=== PATIENT | female | born 1960 | race Caucasian/White ===

== ENCOUNTER 2018-03-30 12:16 | Inpatient (IN) | payer MEDICAID, OTHER ==
[2018-03-30] MEDS: SOD CHLORIDE 0.9% 1,000 ML IV (13:00)
[2018-03-30] MEDS: ONDANSETRON 4 MG INJ IV (13:00)
[2018-03-30] MEDS: morphine 4 MG/ML VIAL IV (13:01)
[2018-03-30 13:22] LABS: ADD MAN DIFF? NO
[2018-03-30 13:25] LABS: BASOPHILS % 0.4 % (0.0-2.0); EOSINOPHILS % 0.1 % (0.0-7.0); HEMATOCRIT 40.9 % (37.0-47.0); HEMOGLOBIN 13.1 g/dl (12.0-16.0); LYMPHOCYTES # 0.7 10^3/ul (0.8-2.9); LYMPHOCYTES % 8.8 % (15.0-51.0); MEAN CORPUSCULAR HEMOGLOBIN 29.4 pg (29.0-33.0); MEAN CORPUSCULAR VOLUME 91.7 fl (82.0-101.0); MEAN PLATELET VOLUME 9.6 fl (7.4-10.4); MONOCYTE # 0.1 10^3/ul (0.3-0.9); MONOCYTES % 0.6 % (0.0-11.0); NEUTROPHIL # 7.2 10^3/ul (1.6-7.5); NEUTROPHILS % 89.8 % (39.0-77.0); PLATELET COUNT 262 10^3/UL (140-415); RED BLOOD COUNT 4.46 10^6/ul (4.20-5.40); RED CELL DISTRIBUTION WIDTH 13.1 % (11.5-14.5)
[2018-03-30 13:27] LABS: ADD UMIC NO; POSITIVE DIFF @See below; UR ASCORBIC ACID NEGATIVE (NEGATIVE); UR BILIRUBIN (Dip) NEGATIVE (NEGATIVE); UR BLOOD (Dip) NEGATIVE (NEGATIVE); UR CLARITY CLEAR (CLEAR); UR COLOR YELLOW (YELLOW); UR GLUCOSE (Dip) 1+ mg/dL (NEGATIVE); UR KETONES (Dip) TRACE mg/dL (NEGATIVE); UR LEUKOCYTE ESTERASE (Dip) NEGATIVE Leu/ul (NEGATIVE); UR NITRITE (Dip) NEGATIVE (NEGATIVE); UR SPECIFIC GRAVITY (Dip) 1.016 (1.003-1.030); UR TOTAL PROTEIN (Dip) NEGATIVE (NEGATIVE); UR UROBILINOGEN (Dip) NEGATIVE (NEGATIVE)
[2018-03-30 13:43] LABS: ALANINE AMINOTRANSFERASE 25 IU/L (13-69); ALBUMIN 4.2 g/dl (3.3-4.9); ALBUMIN/GLOBULIN RATIO 1.27; ALKALINE PHOSPHATASE 165 IU/L (42-121); ANION GAP 15 (8-16); ASPARTATE AMINO TRANSFERASE 20 IU/L (15-46); BILIRUBIN,INDIRECT 0.9 mg/dl (0-1.1); BILIRUBIN,TOTAL 0.9 mg/dl (0.2-1.3); BLOOD UREA NITROGEN 15 mg/dl (7-20); CALCIUM 9.4 mg/dl (8.4-10.2); CARBON DIOXIDE 27 mmol/L (21-31); CHLORIDE 100 mmol/L (97-110); GLUCOSE 207 mg/dl (70-220); LIPASE 25 U/L (23-300); POTASSIUM 3.9 mmol/L (3.5-5.1); SODIUM 138 mmol/L (135-144); TOTAL PROTEIN 7.5 g/dl (6.1-8.1)
[2018-03-30 13:59] LABS: BAND NEUTROPHILS #M 0.7 10^3/ul (0.0-0.6); BAND NEUTROPHILS % (M) 9 % (0-4); BASOPHIL #M 0.1 10^3/ul (0.0-0.0); BASOPHILS % (M) 2 % (0-2); LYMPHOCYTES #M 3.1 10^3/ul (0.8-2.9); LYMPHOCYTES % (M) 39 % (15-51); PLATELET ESTIMATE NORMAL; POLYCHROMASIA 1+ (0-0); SEG NEUT #M 4.1 10^3/ul (1.6-7.5); SEGMENTED NEUTROPHILS (M) % 50 % (39-77); SMUDGE%M 2 % (0-0)
[2018-03-30] MEDS: SOD CHLORIDE 0.9% 100 ML (14:29)
[2018-03-30] MEDS: IOHEXOL 300MG/ML 150 ML BTL (14:29)
[2018-03-30] MEDS: PIPER-TAZO 3.375 GM IV (PMX) 100 ML IVPB ×2 (15:22→22:33)
[2018-03-30] MEDS: SODIUM CHLORIDE 0.9% 1L BAG IV* (15:23)
[2018-03-30] MEDS: VANCOMYCIN 1 GM (PMX) 250 ML IVPB (15:54)
[2018-03-30] MEDS: HYDROmorphONE 1 MG/ML SYG IV (15:55)
[2018-03-30 16:08] LABS: LACTIC ACID 1.6 mmol/L (0.5-2.0)
[2018-03-30 16:29] LABS: TROPONIN-I < 0.012 ng/ml (0.000-0.120)
[2018-03-30] MEDS: ONDANSETRON (ODT) 4 MG TAB ODT (17:15)
[2018-03-30 17:56] LABS: LACTIC ACID 1.2 mmol/L (0.5-2.0)
[2018-03-30] MEDS ORDERED: GLUCOSE GEL 15 GRAM TUBE PO ×2 (19:00)
[2018-03-30] MEDS ORDERED: ONDANSETRON 4 MG INJ IV ×2 (19:00)
[2018-03-30] MEDS ORDERED: ACETAMINOPHEN 325 MG TAB PO ×2 (19:00)
[2018-03-30] MEDS ORDERED: GLUCOSE GEL 15 GRAM TUBE BUCCAL (19:00)
[2018-03-30] MEDS ORDERED: GLUCAGON 1 MG INJ IM (19:00)
[2018-03-30] MEDS ORDERED: DEXTROSE 50% 50 ML SYRINGE IV ×2 (19:00)
[2018-03-30 19:05] LABS: HEMOGLOBIN A1C 8.6 % (0-5.9)
[2018-03-30] MEDS: SOD CHLORIDE 0.45% 1,000 ML IV (19:13)
[2018-03-30] MEDS ORDERED: VANCOMYCIN IV PER PHARMACY XX (21:00)
[2018-03-30 21:11] LABS: LACTIC ACID 1.3 mmol/L (0.5-2.0)
[2018-03-30] MEDS: morphine 2 MG INJ IV (22:02)
[2018-03-30] MEDS: INSULIN ASPART [NOVOLOG] 3 ML PEN SC (22:37)
[2018-03-30] MEDS: VANCOMYCIN 750 MG in SOD CHLORIDE 0.9% 150 ML IVPB (23:25)
[2018-03-31] MEDS: ACCU-CHEK XX (02:00)
[2018-03-31] MEDS: morphine 2 MG INJ IV (02:06)
[2018-03-31] MEDS: KETOROLAC 30 MG INJ IV ×4 (04:06→22:46)
[2018-03-31] MEDS: PIPER-TAZO 3.375 GM IV (PMX) 100 ML IVPB (05:24)
[2018-03-31 06:27] LABS: ADD MAN DIFF? NO
[2018-03-31 06:30] LABS: BASOPHILS % 0.4 % (0.0-2.0); EOSINOPHILS % 0.2 % (0.0-7.0); HEMATOCRIT 31.6 % (37.0-47.0); HEMOGLOBIN 10.2 g/dl (12.0-16.0); LYMPHOCYTES # 1.5 10^3/ul (0.8-2.9); MEAN CORPUSCULAR HEMOGLOBIN 29.7 pg (29.0-33.0); MEAN CORPUSCULAR HGB CONC 32.3 g/dl (32.0-37.0); MEAN CORPUSCULAR VOLUME 92.1 fl (82.0-101.0); MEAN PLATELET VOLUME 10.1 fl (7.4-10.4); MONOCYTE # 0.6 10^3/ul (0.3-0.9); MONOCYTES % 6.3 % (0.0-11.0); NEUTROPHILS % 76.8 % (39.0-77.0); PLATELET COUNT 232 10^3/UL (140-415); RED BLOOD COUNT 3.43 10^6/ul (4.20-5.40); RED CELL DISTRIBUTION WIDTH 13.2 % (11.5-14.5)
[2018-03-31 06:30] LABS: WHITE BLOOD COUNT 9.1 10^3/ul (4.8-10.8)
[2018-03-31 07:08] LABS: ALANINE AMINOTRANSFERASE 23 IU/L (13-69); ALBUMIN 3.2 g/dl (3.3-4.9); ALBUMIN/GLOBULIN RATIO 1.14; ALKALINE PHOSPHATASE 111 IU/L (42-121); ANION GAP 7 (8-16); ASPARTATE AMINO TRANSFERASE 17 IU/L (15-46); BILIRUBIN,INDIRECT 0.4 mg/dl (0-1.1); BILIRUBIN,TOTAL 0.4 mg/dl (0.2-1.3); BLOOD UREA NITROGEN 8 mg/dl (7-20); CALCIUM 8.4 mg/dl (8.4-10.2); CARBON DIOXIDE 27 mmol/L (21-31); CHLORIDE 108 mmol/L (97-110); CREATININE 0.49 mg/dl (0.44-1.00); GLUCOSE 141 mg/dl (70-220); MAGNESIUM 2.1 mg/dl (1.7-2.5); PHOSPHORUS 2.7 mg/dl (2.5-4.9); POTASSIUM 3.8 mmol/L (3.5-5.1); SODIUM 138 mmol/L (135-144)
[2018-03-31] MEDS: INSULIN ASPART [NOVOLOG] 3 ML PEN SC ×6 (08:03→20:47)
[2018-03-31] MEDS ORDERED: HYDROCODONE/APAP (5/325) TAB PO (09:30)
[2018-03-31] MEDS: CIPROFLOXACIN 0.3% 2.5 ML OPH RIGHT EYE (10:03)
[2018-03-31 11:02] LABS: IRON 16 ug/dl (35-150)
[2018-03-31 11:02] LABS: LACTATE DEHYDROGENASE 401 IU/L (313-618)
[2018-03-31 11:11] LABS: % IRON SATURATION 6 % SAT (22-52); TOTAL IRON BINDING CAPACITY 283 ug/dl (241-421)
[2018-03-31] MEDS: VANCOMYCIN 750 MG in SOD CHLORIDE 0.9% 150 ML IVPB (11:23)
[2018-03-31] MEDS: MEROPENEM 1 GM/50ML(PMX) 50 ML IVPB ×2 (15:07→22:03)
[2018-03-31] MEDS: FERROUS SULFATE (EC) 325 MG TAB PO ×2 (15:07→20:47)
[2018-03-31] MEDS: INSULIN GLARGINE [LANtus] 3 ML PEN SC (20:51)
[2018-03-31 23:27] LABS: VANCOMYCIN,TROUGH 5.6 ug/ml (10.0-20.0)
[2018-04-01] MEDS: VANCOMYCIN 1 GM 250 ML IVPB ×3 (00:03→16:13)
[2018-04-01] MEDS: ACCU-CHEK XX ×2 (01:46)
[2018-04-01] MEDS: MEROPENEM 1 GM/50ML(PMX) 50 ML IVPB ×3 (05:42→21:26)
[2018-04-01] MEDS: KETOROLAC 30 MG INJ IV ×4 (05:51→22:45)
[2018-04-01 06:16] LABS: ADD MAN DIFF? NO
[2018-04-01 06:19] LABS: BASOPHILS % 0.6 % (0.0-2.0); EOSINOPHILS % 0.8 % (0.0-7.0); HEMATOCRIT 33.7 % (37.0-47.0); HEMOGLOBIN 10.8 g/dl (12.0-16.0); LYMPHOCYTES # 1.4 10^3/ul (0.8-2.9); LYMPHOCYTES % 27.5 % (15.0-51.0); MEAN CORPUSCULAR HEMOGLOBIN 29.7 pg (29.0-33.0); MEAN CORPUSCULAR VOLUME 92.6 fl (82.0-101.0); MEAN PLATELET VOLUME 9.9 fl (7.4-10.4); MONOCYTE # 0.5 10^3/ul (0.3-0.9); MONOCYTES % 9.7 % (0.0-11.0); NEUTROPHIL # 3.1 10^3/ul (1.6-7.5); NEUTROPHILS % 61.2 % (39.0-77.0); PLATELET COUNT 227 10^3/UL (140-415); RED BLOOD COUNT 3.64 10^6/ul (4.20-5.40); RED CELL DISTRIBUTION WIDTH 13.3 % (11.5-14.5)
[2018-04-01 06:19] LABS: WHITE BLOOD COUNT 5.1 10^3/ul (4.8-10.8)
[2018-04-01 07:13] LABS: ANION GAP 11 (8-16); BLOOD UREA NITROGEN 13 mg/dl (7-20); CALCIUM 8.7 mg/dl (8.4-10.2); CARBON DIOXIDE 28 mmol/L (21-31); CHLORIDE 107 mmol/L (97-110); CREATININE 0.48 mg/dl (0.44-1.00); GLUCOSE 149 mg/dl (70-220); MAGNESIUM 2.1 mg/dl (1.7-2.5); PHOSPHORUS 2.9 mg/dl (2.5-4.9); POTASSIUM 3.7 mmol/L (3.5-5.1); SODIUM 142 mmol/L (135-144)
[2018-04-01] MEDS: FERROUS SULFATE (EC) 325 MG TAB PO ×2 (08:02→21:26)
[2018-04-01] MEDS: INSULIN ASPART [NOVOLOG] 3 ML PEN SC ×6 (08:09→21:00)
[2018-04-01] MEDS: POLYETHYLENE GLYCOL 17 GM PACKET PO (16:13)
[2018-04-01 17:16] LABS: HAPTOGLOBIN 334 mg/dL (43-212)
[2018-04-01] MEDS: metFORMIN 500 MG TAB PO (17:17)
[2018-04-01] MEDS: REPAGLINIDE 1 MG TAB PO (17:18)
[2018-04-01] MEDS ORDERED: morphine LIQ (10 MG/5 ML) CUP PO (21:30)
[2018-04-02 00:04] LABS: VANCOMYCIN,TROUGH 11.7 ug/ml (10.0-20.0)
[2018-04-02] MEDS: VANCOMYCIN 1 GM 250 ML IVPB ×4 (00:39→23:45)
[2018-04-02] MEDS: ACCU-CHEK XX ×2 (02:00→23:54)
[2018-04-02 05:37] LABS: ADD MAN DIFF? NO
[2018-04-02 05:44] LABS: BASOPHILS % 0.8 % (0.0-2.0); EOSINOPHILS # 0.1 10^3/ul (0.0-0.5); EOSINOPHILS % 1.2 % (0.0-7.0); HEMATOCRIT 36.3 % (37.0-47.0); HEMOGLOBIN 11.7 g/dl (12.0-16.0); LYMPHOCYTES # 1.7 10^3/ul (0.8-2.9); MEAN CORPUSCULAR HEMOGLOBIN 29.4 pg (29.0-33.0); MEAN CORPUSCULAR HGB CONC 32.2 g/dl (32.0-37.0); MEAN CORPUSCULAR VOLUME 91.2 fl (82.0-101.0); MEAN PLATELET VOLUME 9.4 fl (7.4-10.4); MONOCYTE # 0.4 10^3/ul (0.3-0.9); MONOCYTES % 8.1 % (0.0-11.0); NEUTROPHIL # 2.6 10^3/ul (1.6-7.5); NEUTROPHILS % 53.5 % (39.0-77.0); PLATELET COUNT 271 10^3/UL (140-415); RED BLOOD COUNT 3.98 10^6/ul (4.20-5.40); RED CELL DISTRIBUTION WIDTH 13.2 % (11.5-14.5)
[2018-04-02 05:44] LABS: WHITE BLOOD COUNT 4.8 10^3/ul (4.8-10.8)
[2018-04-02] MEDS: MEROPENEM 1 GM/50ML(PMX) 50 ML IVPB ×3 (05:44→22:12)
[2018-04-02] MEDS: KETOROLAC 30 MG INJ IV ×3 (05:48→18:11)
[2018-04-02 06:05] LABS: ANION GAP 14 (8-16); BLOOD UREA NITROGEN 15 mg/dl (7-20); CALCIUM 9.2 mg/dl (8.4-10.2); CARBON DIOXIDE 30 mmol/L (21-31); CHLORIDE 103 mmol/L (97-110); CREATININE 0.49 mg/dl (0.44-1.00); GLUCOSE 175 mg/dl (70-220); MAGNESIUM 2.2 mg/dl (1.7-2.5); PHOSPHORUS 3.6 mg/dl (2.5-4.9); POTASSIUM 4.3 mmol/L (3.5-5.1); SODIUM 143 mmol/L (135-144)
[2018-04-02] MEDS: INSULIN ASPART [NOVOLOG] 3 ML PEN SC ×4 (08:03→21:00)
[2018-04-02] MEDS: FERROUS SULFATE (EC) 325 MG TAB PO ×2 (08:34→20:54)
[2018-04-02] MEDS: metFORMIN 500 MG TAB PO ×2 (08:34→17:37)
[2018-04-02] MEDS: REPAGLINIDE 1 MG TAB PO ×3 (08:34→17:37)
[2018-04-03] MEDS: KETOROLAC 30 MG INJ IV ×4 (00:02→20:52)
[2018-04-03] MEDS: MEROPENEM 1 GM/50ML(PMX) 50 ML IVPB ×3 (05:28→21:44)
[2018-04-03 06:05] LABS: ADD MAN DIFF? NO
[2018-04-03 06:23] LABS: WHITE BLOOD COUNT 4.8 10^3/ul (4.8-10.8)
[2018-04-03 06:23] LABS: BASOPHILS % 0.6 % (0.0-2.0); EOSINOPHILS # 0.1 10^3/ul (0.0-0.5); EOSINOPHILS % 1.5 % (0.0-7.0); HEMATOCRIT 37.4 % (37.0-47.0); HEMOGLOBIN 12.1 g/dl (12.0-16.0); LYMPHOCYTES # 1.9 10^3/ul (0.8-2.9); LYMPHOCYTES % 38.7 % (15.0-51.0); MEAN CORPUSCULAR HEMOGLOBIN 29.5 pg (29.0-33.0); MEAN CORPUSCULAR HGB CONC 32.4 g/dl (32.0-37.0); MEAN CORPUSCULAR VOLUME 91.2 fl (82.0-101.0); MEAN PLATELET VOLUME 9.5 fl (7.4-10.4); MONOCYTE # 0.4 10^3/ul (0.3-0.9); MONOCYTES % 7.9 % (0.0-11.0); NEUTROPHIL # 2.4 10^3/ul (1.6-7.5); NEUTROPHILS % 50.7 % (39.0-77.0); PLATELET COUNT 280 10^3/UL (140-415); RED CELL DISTRIBUTION WIDTH 13.2 % (11.5-14.5)
[2018-04-03 06:40] LABS: ANION GAP 15 (8-16); BLOOD UREA NITROGEN 17 mg/dl (7-20); CALCIUM 9.1 mg/dl (8.4-10.2); CARBON DIOXIDE 28 mmol/L (21-31); CHLORIDE 103 mmol/L (97-110); CREATININE 0.46 mg/dl (0.44-1.00); GLUCOSE 147 mg/dl (70-220); MAGNESIUM 2.2 mg/dl (1.7-2.5); PHOSPHORUS 3.7 mg/dl (2.5-4.9); POTASSIUM 4.1 mmol/L (3.5-5.1); SODIUM 142 mmol/L (135-144)
[2018-04-03] MEDS: VANCOMYCIN 1 GM 250 ML IVPB ×2 (08:12→16:29)
[2018-04-03] MEDS: metFORMIN 500 MG TAB PO ×2 (08:13→17:05)
[2018-04-03] MEDS: FERROUS SULFATE (EC) 325 MG TAB PO ×2 (08:13→20:45)
[2018-04-03] MEDS: glipiZIDE 5 MG TAB PO (08:13)
[2018-04-03] MEDS: INSULIN ASPART [NOVOLOG] 3 ML PEN SC ×4 (08:15→20:45)
[2018-04-03] MEDS: traMADol 50 MG TAB PO (12:41)
[2018-04-03] MEDS: LACTULOSE 30ML CUP PO (13:05)
[2018-04-03 23:20] LABS: VANCOMYCIN,TROUGH 17.7 ug/ml (10.0-20.0)
[2018-04-04] MEDS: ACCU-CHEK XX (02:00)
[2018-04-04] MEDS: KETOROLAC 30 MG INJ IV ×3 (05:26→22:25)
[2018-04-04] MEDS: MEROPENEM 1 GM/50ML(PMX) 50 ML IVPB (05:29)
[2018-04-04 06:00] LABS: ADD MAN DIFF? NO
[2018-04-04 06:09] LABS: BASOPHILS % 0.8 % (0.0-2.0); EOSINOPHILS # 0.1 10^3/ul (0.0-0.5); EOSINOPHILS % 2.5 % (0.0-7.0); HEMATOCRIT 35.6 % (37.0-47.0); HEMOGLOBIN 11.5 g/dl (12.0-16.0); LYMPHOCYTES # 1.8 10^3/ul (0.8-2.9); LYMPHOCYTES % 34.1 % (15.0-51.0); MEAN CORPUSCULAR HEMOGLOBIN 29.6 pg (29.0-33.0); MEAN CORPUSCULAR HGB CONC 32.3 g/dl (32.0-37.0); MEAN CORPUSCULAR VOLUME 91.5 fl (82.0-101.0); MEAN PLATELET VOLUME 9.4 fl (7.4-10.4); MONOCYTE # 0.4 10^3/ul (0.3-0.9); MONOCYTES % 7.4 % (0.0-11.0); NEUTROPHIL # 2.9 10^3/ul (1.6-7.5); NEUTROPHILS % 54.4 % (39.0-77.0); PLATELET COUNT 282 10^3/UL (140-415); RED BLOOD COUNT 3.89 10^6/ul (4.20-5.40); RED CELL DISTRIBUTION WIDTH 13.2 % (11.5-14.5)
[2018-04-04 06:09] LABS: WHITE BLOOD COUNT 5.3 10^3/ul (4.8-10.8)
[2018-04-04 06:30] LABS: ANION GAP 13 (8-16); BLOOD UREA NITROGEN 20 mg/dl (7-20); CALCIUM 8.9 mg/dl (8.4-10.2); CARBON DIOXIDE 26 mmol/L (21-31); CHLORIDE 108 mmol/L (97-110); CREATININE 0.57 mg/dl (0.44-1.00); GLUCOSE 193 mg/dl (70-220); MAGNESIUM 2.1 mg/dl (1.7-2.5); POTASSIUM 4.5 mmol/L (3.5-5.1); SODIUM 142 mmol/L (135-144)
[2018-04-04] MEDS: VANCOMYCIN 1 GM 250 ML IVPB ×2 (07:57)
[2018-04-04] MEDS: glipiZIDE 5 MG TAB PO (07:57)
[2018-04-04] MEDS: FERROUS SULFATE (EC) 325 MG TAB PO ×2 (07:57→20:48)
[2018-04-04] MEDS: metFORMIN 500 MG TAB PO ×2 (07:57→17:19)
[2018-04-04] MEDS: INSULIN ASPART [NOVOLOG] 3 ML PEN SC ×4 (07:58→20:51)
[2018-04-04] MEDS: CLINDAMYCIN 300 MG CAP PO ×3 (12:14→23:17)
[2018-04-04] MEDS: CIPROFLOXACIN 500 MG TAB PO (17:19)
[2018-04-04] MEDS ORDERED: VANCOMYCIN 1.25 GM in SOD CHLORIDE 0.9% 250 ML IVPB (18:00)
[2018-04-04] MEDS: traMADol 50 MG TAB PO (20:48)
[2018-04-05] MEDS: ACCU-CHEK XX (01:57)
[2018-04-05] MEDS: CLINDAMYCIN 300 MG CAP PO ×3 (05:24→17:08)
[2018-04-05] MEDS: CIPROFLOXACIN 500 MG TAB PO ×2 (05:24→17:08)
[2018-04-05 06:19] LABS: ADD MAN DIFF? NO
[2018-04-05 06:27] LABS: BASOPHILS % 0.9 % (0.0-2.0); EOSINOPHILS # 0.2 10^3/ul (0.0-0.5); EOSINOPHILS % 3.2 % (0.0-7.0); HEMATOCRIT 38.2 % (37.0-47.0); HEMOGLOBIN 12.1 g/dl (12.0-16.0); LYMPHOCYTES # 1.5 10^3/ul (0.8-2.9); LYMPHOCYTES % 32.7 % (15.0-51.0); MEAN CORPUSCULAR HEMOGLOBIN 29.1 pg (29.0-33.0); MEAN CORPUSCULAR HGB CONC 31.7 g/dl (32.0-37.0); MEAN CORPUSCULAR VOLUME 91.8 fl (82.0-101.0); MEAN PLATELET VOLUME 9.4 fl (7.4-10.4); MONOCYTE # 0.3 10^3/ul (0.3-0.9); MONOCYTES % 5.8 % (0.0-11.0); NEUTROPHIL # 2.6 10^3/ul (1.6-7.5); NEUTROPHILS % 56.5 % (39.0-77.0); PLATELET COUNT 296 10^3/UL (140-415); RED BLOOD COUNT 4.16 10^6/ul (4.20-5.40); RED CELL DISTRIBUTION WIDTH 13.2 % (11.5-14.5)
[2018-04-05 06:27] LABS: WHITE BLOOD COUNT 4.7 10^3/ul (4.8-10.8)
[2018-04-05 07:05] LABS: ANION GAP 17 (8-16); BLOOD UREA NITROGEN 20 mg/dl (7-20); CALCIUM 9.2 mg/dl (8.4-10.2); CARBON DIOXIDE 29 mmol/L (21-31); CHLORIDE 101 mmol/L (97-110); CREATININE 0.54 mg/dl (0.44-1.00); GLUCOSE 139 mg/dl (70-220); MAGNESIUM 2.2 mg/dl (1.7-2.5); PHOSPHORUS 4.3 mg/dl (2.5-4.9); POTASSIUM 4.3 mmol/L (3.5-5.1); SODIUM 143 mmol/L (135-144)
[2018-04-05] MEDS: metFORMIN 500 MG TAB PO ×2 (07:38→17:08)
[2018-04-05] MEDS: FERROUS SULFATE (EC) 325 MG TAB PO (07:38)
[2018-04-05] MEDS: glipiZIDE 5 MG TAB PO (07:38)
[2018-04-05] MEDS: INSULIN ASPART [NOVOLOG] 3 ML PEN SC ×2 (07:42→12:15)
[2018-04-05] MEDS: KETOROLAC 30 MG INJ IV (15:31)
== END 2018-04-05 17:31 | disposition home or self-care (01) | DRG 872 ==
LOC: FTE 12:16 → MS2 18:48
DX: A41.9 Sepsis, unspecified organism (principal); L03.213 Periorbital cellulitis; J01.90 Acute sinusitis, unspecified; E11.9 Type 2 diabetes mellitus without complications; I10 Essential (primary) hypertension; D50.9 Iron deficiency anemia, unspecified
CPT/HCPCS: 36415; 70450; 70480; 71045; 80048; 80053; 80202; 81003; 82728; 82962; 83010; 83036; 83540; 83605; 83615; 83690; 83735; 84100; 84484; 85025; 87040; 87045; 87086; 93005; 96361; 96365; 96366; 96368; 96375; 96376; 99285-25

== ENCOUNTER 2018-05-18 08:54 | Emergency (ER) | payer MEDICAID | END 2018-05-18 09:48 | disposition home or self-care (01) | LOC: FTE 08:54 | DX: J01.10 Acute frontal sinusitis, unspecified (principal); I10 Essential (primary) hypertension; E11.9 Type 2 diabetes mellitus without complications; Z79.84 Long term (current) use of oral hypoglycemic drugs | CPT/HCPCS: 99283; Z7502 ==